=== PATIENT | female | born 1995 | race African-American/Black ===

== ENCOUNTER 2018-07-18 14:42 | Emergency (ER) | payer SELFPAY ==
[~2018-07-18] VITALS: Ht 162.6 cm; Wt 81.6 kg
[~2018-07-18 14:42] MED LIST: ALBUTEROL SULF8.5 GM INH; GUAIFENESIN1200 MG PO; HUMALOG100 UNIT/1 SUBQ; KEPPRA500 M4 ORAL; LANTUS5 UNITS SUBQ; TESSALON PERLE100 MG ORAL
--- NOTE | 2018-07-18 14:55 | NUR ---
ED Nurse Note: Pt is not in the waiting room tamiko.
[2018-07-18 15:09] VITALS: BP 121/79
--- NOTE | 2018-07-18 15:11 | NUR ---
ED Nurse Note: pt walked into ED c/o left upper tooth pain since a week ago and progressively worsening. Pt states she wasn't able to see the dentist. Pt rates pain 10/10 sharp and constant. Pt AA&ox4, gcs=15, skin warm and dry, resp even and unlabored, airway patent, ambulates w/ steady gait, noted tenderness noted missing tooth on upper left side, and some darkened area on the tooth before missing tooth. Will continue to monitor.
--- NOTE | 2018-07-18 15:23 | Emergency Room Report ---
History of Present Illness General Chief Complaint: Toothache Source: Patient Present Illness HPI 22-year-old female presents to the emergency department complaining of progressive left upper molar pain at this now 10 out of 10 in severity 1.5 weeks. Patient states that she was supposed to have the tooth pulled however she wanted to try to save the tooth get a root canal instead but was unable to have this performed. Patient states that she left work early because the pain was too bad today. Patient reports talking exacerbates her pain eating or even having the cold air flow on or across the tooth causes significant pain. She denies discharge, swelling of the gums, fevers, chills or swollen tender lymph nodes. Allergies: Coded Allergies: No Known Allergies (Unverified , 06/10/18) Patient History Past Medical History: see triage record Past Surgical History: none Pertinent Family History: none Last Menstrual Period: 07/11/18 Now: No Reviewed Nursing Documentation: PMH: Agreed; PSxH: Agreed Nursing Documentation-PMH Past Medical History: No History, Except For Hx Cardiac Problems: No - TB Hx Asthma: Yes Hx Diabetes: Yes Hx Seizures: Yes Review of Systems All Other Systems: negative except mentioned in HPI Physical Exam Vital Signs Date Time Temp Pulse Resp B/P (MAP) Pulse Ox O2 Delivery O2 Flow Rate FiO2 07/18/18 15:01 98.4 78 20 121/79 98 Room Air Sp02 EP Interpretation: reviewed, normal General Appearance: no apparent distress, alert, GCS 15, non-toxic Head: normocephalic, atraumatic Eyes: bilateral eye normal inspection, bilateral eye PERRL ENT: hearing grossly normal, normal voice, other - tenderness to percussion to tooth no. 15, no fluctuance about the gum line, some erythema noted surrounding the base of the tooth. Neck: full range of motion Respiratory: lungs clear, speaking full sentences Cardiovascular #1: regular rate, rhythm Musculoskeletal: back normal, gait/station normal, normal range of motion, non- tender Neurologic: alert, oriented x3, responsive, motor strength/tone normal, sensory intact, normal gait, speech normal, grossly normal Psychiatric: judgement/insight normal Skin: normal color, no rash, warm/dry, well hydrated Lymphatic: no adenopathy Medical Decision Making PA Attestation Dr. Solorzano is my supervising Physician whom patient management has been discussed with. Diagnostic Impression: Primary Impression: Acute pericoronitis ER Course 22-year-old female presents to the emergency department complaining of progressive left upper molar pain at this now 10 out of 10 in severity 1.5 weeks. Patient states that she was supposed to have the tooth pulled however she wanted to try to save the tooth get a root canal instead but was unable to have this performed. Patient states that she left work early because the pain was too bad today. Patient reports talking exacerbates her pain eating or even having the cold air flow on or across the tooth causes significant pain. She denies discharge, swelling of the gums, fevers, chills or swollen tender lymph nodes. Ddx considered but are not limited to cellulitis, dental abscess, orbital cellulitis, d/l tooth, dental pain. trigeminal neuralgia Vital signs: are WNL, pt. is afebrile H&PE are most consistent with dental abscess. ORDERS: none required at this time, the diagnosis is clinical ED INTERVENTIONS: -[place] PO DISCHARGE: At this time pt. is stable for d/c to home. Will provide printed patient care instructions, and any necessary prescriptions. Care plan and follow up instructions have been discussed with the patient prior to discharge. Last Vital Signs Date Time Temp Pulse Resp B/P (MAP) Pulse Ox O2 Delivery O2 Flow Rate FiO2 07/18/18 15:09 98.4 78 20 121/79 98 Room Air Disposition: HOME, SELF-CARE Condition: Stable Scripts Acetaminophen With Codeine (T#3) (TYLENOL #3 TAB*) Y Tab 1 TAB ORAL Q6H PRN for For Pain, #8 TAB Prov: April Lara 07/18/18 Amoxicillin* (AMOXIL*) 500 Mg Capsule 500 MG ORAL BID for 7 Days, #14 CAP Prov: April Lara 07/18/18 Departure Forms: Return to Work Return to Work Date: Jul 21, 2018 Work Restrictions: None Return to Full Activity: Jul 22, 2018 Patient Instructions: Dental Pain Additional Instructions: Take medications as directed. Follow up with a Dentist in 3-5 days, even if your symptoms have resolved. * * --Please review list of Dental clinics, if you do not already have a Dentist Return sooner to ED if new symptoms occur, or current symptoms become worse. Do not drink alcohol, drive, or operate heavy machinery while taking Tylenol # 3 as this may cause drowsiness. - Please note that this Emergency Department Report was dictated using digedugarland machine operator technology software, occasionally this can lead to erroneous entry secondary to interpretation by the dictation equipment. April Lara Jul 18, 2018 15:23
[2018-07-18] MEDS ORDERED: AMOXICILLIN500 MG ORAL (15:25)
[2018-07-18] MEDS ORDERED: ACETAMINOPHEN-1 EAC1 ORAL (15:25)
[2018-07-18] MEDS ORDERED: Norco 5mg/325mg tab ORAL ONE (15:30)
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
[2018-07-18 15:45] VITALS: BP 118/98
[2018-07-18] MEDS ORDERED: Tylenol #3 tab (300mg/30mg) ORAL ONE (15:45)
--- NOTE | 2018-07-18 15:45 | NUR ---
ED Nurse Note: Pt discharge instruction provided w/ prescription, id band removed, pt education done via discussion and handout, pt verbalized understanding and agrees with plan, pt advised to follow up with pcp regarding pt's condition, pt advised to return to ed if s/s worsen or new s/s develop.
== END 2018-07-18 15:45 | disposition home or self-care (01) ==
LOC: EMR 15:30
DX: K05.20 Aggressive periodontitis, unspecified (principal); E11.9 Type 2 diabetes mellitus without complications; J45.909 Unspecified asthma, uncomplicated
CPT/HCPCS: 99282

== ENCOUNTER 2019-03-02 22:33 | Emergency (ER) | payer MEDICAID ==
[~2019-03-02] VITALS: Ht 162.6 cm; Wt 79.4 kg
[~2019-03-02 22:33] MED LIST changes: +ACETAMINOPHEN-1 EAC1 ORAL; +AMOXICILLIN500 MG ORAL
[2019-03-02 23:18] VITALS: BP 152/85
--- NOTE | 2019-03-02 23:20 | NUR ---
ED Nurse Note: PATIENT WALKED IN TO ER FROM HOME C/O FEVER, MOUTH PAIN, AND HEAD AND NECK PAIN AFTER 2 TEETH PULLED 3 DAYS AGO. PAIN AT 10/10 AND SHARP. AAO X4, SKIN IS DRY WARM TO TOUCH. ER MD AT BEDSIDE.
--- NOTE | 2019-03-02 23:22 | Emergency Room Report ---
History of Present Illness General Chief Complaint: Pain Source: Patient Present Illness HPI Presents with sore throat for 1 week. She is on amoxicillin, Tylenol with codeine Motrin aspirin and Tylenol. She states she cannot swallow. She had teeth pulled and has pain there. She feels dizzy when she stands up. She does not believe she is at this time. The pain is rated 10/10, burning in her throat and aching in her mouth which is constant. No radiation. Allergies: Coded Allergies: No Known Allergies (Unverified , 03/02/19) Patient History Past Medical History: see triage record Social History: Reports: smoking Social History Narrative From home - working Last Menstrual Period: 02-08-2019 Now: No Reviewed Nursing Documentation: PMH: Agreed; PSxH: Agreed Nursing Documentation-PMH Hx Cardiac Problems: No - TB Hx Asthma: Yes Hx Diabetes: Yes Hx Seizures: Yes Review of Systems Constitutional: Reports: see HPI ENT: Reports: see HPI Respiratory: Denies: cough Cardiovascular: Denies: chest pain Gastrointestinal: Denies: diarrhea, nausea, vomiting Genitourinary: Reports: see HPI Musculoskeletal: Reports: see HPI Skin: Denies: rash Neurological: Reports: see HPI; Denies: headache Physical Exam Vital Signs Date Time Temp Pulse Resp B/P (MAP) Pulse Ox O2 Delivery O2 Flow Rate FiO2 03/02/19 23:01 98.2 80 20 152/85 (107) 98 Room Air Sp02 EP Interpretation: reviewed, normal General Appearance: well appearing, no apparent distress, GCS 15 Head: normocephalic Eyes: bilateral eye normal inspection, bilateral eye PERRL, bilateral eye EOMI ENT: no angioedema, moist mucus membranes, tonsillar swelling - No peritonsillar abscess able to open mouth without difficulty., pharyngeal erythema Neck: supple Respiratory: lungs clear, normal breath sounds Cardiovascular #1: regular rate, rhythm Cardiovascular #2: 2+ radial (R) Gastrointestinal: normal inspection, normal bowel sounds, non tender, non- distended Genitourinary: no CVA tenderness Musculoskeletal: back normal, gait/station normal, normal range of motion Neurologic: alert, oriented x3, grossly normal Psychiatric: mood/affect normal Skin: no rash, other - Tattoos Medical Decision Making Diagnostic Impression: Primary Impression: Pharyngitis Qualified Codes: J02.9 - Acute pharyngitis, unspecified Additional Impression: Dehydration ER Course Patient presents with a week of sore throat undergoing treatment with amoxicillin, Tylenol codeine and Motrin. She has symptoms of dehydration. Differential includes partially treated strep infection, mononucleosis, viral pharyngitis amongst others. There is no evidence of peritonsillar abscess at this time. Patient will be treated with IV hydration, steroids, analgesia and antibiotics. Patient is improved with treatment. Discussed treatment plan with patient. Patient stable for outpatient observation and treatment. Laboratory Tests Test 03/02/19 23:25 White Blood Count 8.6 K/UL (4.8-10.8) Red Blood Count 4.64 M/UL (4.20-5.40) Hemoglobin 13.8 G/DL (12.0-16.0) Hematocrit 41.2 % (37.0-47.0) Mean Corpuscular Volume 89 FL (80-99) Mean Corpuscular Hemoglobin 29.7 PG (27.0-31.0) Mean Corpuscular Hemoglobin Concent 33.4 G/DL (32.0-36.0) Red Cell Distribution Width 12.2 % (11.6-14.8) Platelet Count 219 K/UL (150-450) Mean Platelet Volume 9.4 FL (6.5-10.1) Neutrophils (%) (Auto) 51.7 % (45.0-75.0) Lymphocytes (%) (Auto) 36.2 % (20.0-45.0) Monocytes (%) (Auto) 9.6 % (1.0-10.0) Eosinophils (%) (Auto) 1.3 % (0.0-3.0) Basophils (%) (Auto) 1.2 % (0.0-2.0) Urine Color Pale yellow Urine Appearance Clear Urine pH 6 (4.5-8.0) Urine Specific [place] 1.015 (1.005-1.035) Urine Protein Negative (NEGATIVE) Urine Glucose (UA) 4+ (NEGATIVE) H Urine Ketones Negative (NEGATIVE) Urine Blood Negative (NEGATIVE) Urine Nitrite Negative (NEGATIVE) Urine Bilirubin Negative (NEGATIVE) Urine Urobilinogen Normal MG/DL (0.0-1.0) Urine Leukocyte Esterase Negative (NEGATIVE) Urine HCG, Qualitative Negative (NEGATIVE) Sodium Level 136 MMOL/L (136-145) Potassium Level 3.3 MMOL/L (3.5-5.1) L Chloride Level 103 MMOL/L (98-107) Carbon Dioxide Level 27 MMOL/L (21-32) Anion Gap 6 mmol/L (5-15) Blood Urea Nitrogen 8 mg/dL (7-18) Creatinine 0.6 MG/DL (0.55-1.30) Estimate Glomerular Filtration Rate > 60 mL/min (>60) Glucose Level 224 MG/DL (74-106) H Calcium Level 8.6 MG/DL (8.5-10.1) Total Bilirubin 0.2 MG/DL (0.2-1.0) Aspartate Amino Transferase (AST) 32 U/L (15-37) Alanine Aminotransferase (ALT) 43 U/L (12-78) Alkaline Phosphatase 82 U/L (46-116) Total Protein 6.2 G/DL (6.4-8.2) L Albumin 2.8 G/DL (3.4-5.0) L Globulin 3.4 g/dL Albumin/Globulin Ratio 0.8 (1.0-2.7) L Last Vital Signs Date Time Temp Pulse Resp B/P (MAP) Pulse Ox O2 Delivery O2 Flow Rate FiO2 03/03/19 01:25 98.4 81 16 138/76 99 Room Air Status: improved Disposition: HOME, SELF-CARE Condition: Improved Scripts Lidocaine HCl 2% Viscous (Lidocaine HCl 2% Viscous) 100 Ml Solution 10 ML ORAL QID PRN for sore throat, #60 ML Prov: Bobby Solorzano MD 03/03/19 Tramadol Hcl* (ULTRAM*) 50 Mg Tablet 50 MG ORAL Q6H PRN for For Pain, #8 TAB 0 Refills Prov: Bobby Solorzano MD 03/03/19 Azithromycin* (ZITHROMAX*) 250 Mg Tablet 250 MG ORAL DAILY, #4 TAB Prov: Bobby Solorzano MD 03/03/19 Bobby Solorzano MD Mar 02, 2019 23:22
[2019-03-02] MEDS ORDERED: Azithromycin 500 MG in NS 275 ML IV ONE (23:30)
[2019-03-02] MEDS ORDERED: Lidocaine 2% Visc 15ml soln ORAL ONE (23:30)
[2019-03-02] MEDS ORDERED: Solu-MEDROL 125mg Inj IVP ONE (23:30)
[2019-03-02] MEDS ORDERED: Morphine Sulfate 2mg/ml Inj(IV/IM USE ONLY) IVP ONE (23:30)
[2019-03-02 23:56] LABS: BASOPHILS % (AUTO) 1.2 % (0.0-2.0); EOSINOPHILS % (AUTO) 1.3 % (0.0-3.0); HEMATOCRIT 41.2 % (37.0-47.0); HEMOGLOBIN 13.8 G/DL (12.0-16.0); LYMPHOCYTES % (AUTO) 36.2 % (20.0-45.0); MEAN CORPUSCULAR VOLUME 89 FL (80-99); MONOCYTES % (AUTO) 9.6 % (1.0-10.0); NEUTROPHILS % (AUTO) 51.7 % (45.0-75.0); PLATELET COUNT 219 K/UL (150-450); RED BLOOD COUNT 4.64 M/UL (4.20-5.40); RED CELL DISTRIBUTION WIDTH 12.2 % (11.6-14.8); WHITE BLOOD COUNT 8.6 K/UL (4.8-10.8)
[2019-03-02 23:59] LABS: APPEARANCE,URINE CLEAR; BILIRUBIN, URINE NEGATIVE (NEGATIVE); COLOR,URINE PALE YELLOW; GLUCOSE, URINE (UA) 4+ (NEGATIVE); KETONES,URINE NEGATIVE (NEGATIVE); LEUKOCYTE ESTERASE ,URINE NEGATIVE (NEGATIVE); NITRITE,URINE NEGATIVE (NEGATIVE); PH,URINE 6 (4.5-8.0); PROTEIN,URINE NEGATIVE (NEGATIVE); UROBILINOGEN,URINE NORMAL MG/DL (0.0-1.0)
[2019-03-03 00:07] LABS: ANION GAP 6 mmol/L (5-15); BLOOD UREA NITROGEN 8 mg/dL (7-18); CALCIUM 8.6 MG/DL (8.5-10.1); CARBON DIOXIDE 27 MMOL/L (21-32); CHLORIDE 103 MMOL/L (98-107); CREATININE 0.6 MG/DL (0.55-1.30); POTASSIUM 3.3 MMOL/L (3.5-5.1); SODIUM 136 MMOL/L (136-145)
[2019-03-03 00:12] LABS: ALANINE AMINOTRANSFERASE 43 U/L (12-78); ALBUMIN 2.8 G/DL (3.4-5.0); ALBUMIN/GLOBULIN RATIO 0.8 (1.0-2.7); ALKALINE PHOSPHATASE 82 U/L (46-116); ASPARTATE AMINO TRANSFERASE 32 U/L (15-37); BILIRUBIN,TOTAL 0.2 MG/DL (0.2-1.0)
[2019-03-03 01:15] VITALS: BP 138/76
[2019-03-03] MEDS ORDERED: LIDOCAINE VISC100 ML ORAL (01:16)
[2019-03-03] MEDS ORDERED: TRAMADOL HCL50 MG ORAL (01:16)
[2019-03-03] MEDS ORDERED: ZITHROMAX250 MG ORAL (01:16)
[2019-03-03 01:25] VITALS: BP 138/76
--- NOTE | 2019-03-03 01:25 | NUR ---
ED Nurse Note: PT BEING D/C TO HOME, PT IS AWAKE, ALERT AND ORIENTED X 4, AMBULATORY, IV REMOVED WITHOUT COMPLICATIONS AND NO BLEEDING NOTED, PT GIVEN F/U INFO AND AFTER CARE INSTRUCTIONS AND RE-VERBALIZES PROPER MEDICATION ADMINISTRATION, NAD NOTED DURING D/C TO HOME.
== END 2019-03-03 01:25 | disposition home or self-care (01) ==
LOC: EMR 23:23
DX: J02.9 Acute pharyngitis, unspecified (principal); E86.0 Dehydration; J45.909 Unspecified asthma, uncomplicated; E11.9 Type 2 diabetes mellitus without complications; F17.200 Nicotine dependence, unspecified, uncomplicated
CPT/HCPCS: 36415; 80053; 81003; 81025; 85025; 96365; 96375; 99284; J0456; J2270; J2405; J2930; J7050

== ENCOUNTER 2019-05-07 16:14 | Emergency (ER) | payer MEDICAID ==
[~2019-05-07] VITALS: Ht 162.6 cm; Wt 78.9 kg
[~2019-05-07 16:14] MED LIST changes: +LIDOCAINE VISC100 ML ORAL; +TRAMADOL HCL50 MG ORAL; +ZITHROMAX250 MG ORAL
[2019-05-07 16:16] VITALS: BP 145/84
[2019-05-07] MEDS ORDERED: Tetanus/Diptheria/Pertussis IM ONE (16:45)
--- NOTE | 2019-05-07 17:22 | Emergency Room Report ---
History of Present Illness General Chief Complaint: Laceration Source: Patient Present Illness HPI 23 YO Female presents to the emergency department complaining of 10 out of 10 in severity left medial leg pain since yesterday status post laceration from a piece of metal on her shoe rack. Patient reports she is not sure when her last tetanus vaccination was and she states that she is not taking any blood thinning medications. Patient reports history of diabetes and states that she is concerned because she may have poor healing process. She denies bleeding at this time she reports pain exacerbation upon walking. She denies trauma or fall. Allergies: Coded Allergies: No Known Allergies (Unverified , 03/02/19) Patient History Past Medical History: see triage record Past Surgical History: none Pertinent Family History: none Last Menstrual Period: 04/14/19 Now: No Reviewed Nursing Documentation: PMH: Agreed; PSxH: Agreed Nursing Documentation-PMH Past Medical History: No History, Except For Hx Cardiac Problems: No - TB Hx Asthma: Yes Hx Diabetes: Yes Hx Seizures: Yes Review of Systems All Other Systems: negative except mentioned in HPI Physical Exam Vital Signs Date Time Temp Pulse Resp B/P (MAP) Pulse Ox O2 Delivery O2 Flow Rate FiO2 05/07/19 16:16 98.2 83 16 145/84 (104) 100 Room Air Sp02 EP Interpretation: reviewed, normal General Appearance: no apparent distress, alert, GCS 15, non-toxic Head: normocephalic, atraumatic Eyes: bilateral eye normal inspection, bilateral eye PERRL ENT: hearing grossly normal, normal voice Neck: full range of motion Respiratory: lungs clear, normal breath sounds, speaking full sentences Cardiovascular #1: regular rate, rhythm Gastrointestinal: non tender, soft Musculoskeletal: gait/station normal, normal range of motion, non-tender Neurologic: alert, oriented x3, responsive, motor strength/tone normal, sensory intact, speech normal, grossly normal Psychiatric: judgement/insight normal Skin: laceration - Medial left calf laceration approx 4 cm in length, superficial avulsion. Lymphatic: no adenopathy Medical Decision Making PA Attestation Dr. Hyde is my supervising Physician whom patient management has been discussed with. Diagnostic Impression: Primary Impression: Laceration ER Course 23 YO Female presents to the emergency department complaining of 10 out of 10 in severity left medial leg pain since yesterday status post laceration from a piece of metal on her shoe rack. Patient reports she is not sure when her last tetanus vaccination was and she states that she is not taking any blood thinning medications. Patient reports history of diabetes and states that she is concerned because she may have poor healing process. She denies bleeding at this time she reports pain exacerbation upon walking. She denies trauma or fall. Ddx considered but are not limited to laceration, tendon injury, cellulitis, amputation Vital signs: are WNL, pt. is afebrile. H&PE are most consistent with: Medial left calf laceration approx 4 cm in length, superficial avulsion. ORDERS: none required at this time, the diagnosis is clinical ED INTERVENTIONS: -Tetanus vaccine was administered as pt. vaccination status was unknown. - The wound was copiously irrigated with normal saline, and explored for foreign body for which no FB was found. -Bacitracin and sterile dressing is applied. Discussed with patient: That we make every effort to approximate the laceration as best as we can so that scarring will be as cosmetically pleasing as possible with our limited cosmetic skill set in the Emergency dept. Regardless of our best efforts there will be scarring after laceration repair. The extent of scarring is unknown at this time. DISCHARGE: At this time pt. is stable for d/c to home. Will provide printed patient care instructions, and any necessary prescriptions. Care plan and follow up instructions have been discussed with the patient prior to discharge. Last Vital Signs Date Time Temp Pulse Resp B/P (MAP) Pulse Ox O2 Delivery O2 Flow Rate FiO2 05/07/19 16:16 98.2 83 16 145/84 100 Room Air Disposition: HOME, SELF-CARE Condition: Stable Departure Forms: Return to Work Return to Work Date: May 11, 2019 Work Restrictions: None Other Restrictions: May return Sooner if Symptoms have resolved. Return to Full Activity: May 11, 2019 Patient Instructions: Nonsutured Laceration Care Additional Instructions: Take medications as directed. Follow up with a Primary Care Provider in 3-5 days, even if your symptoms have resolved. - Return sooner to ED if new symptoms occur, or current symptoms become worse. - Please note that this Emergency Department Report was dictated using [employer] packer and shader technology software, occasionally this can lead to erroneous entry secondary to interpretation by the dictation equipment. April Lara May 07, 2019 17:21
[2019-05-07] MEDS ORDERED: MUPIROCIN22 GM TOPIC (17:24)
[2019-05-07] MEDS ORDERED: CEPHALEXIN500 MG ORAL (17:24)
[2019-05-07] MEDS ORDERED: Neosporin Oint Ud Pkt TOPIC ONE (17:30)
--- NOTE | 2019-05-07 17:40 | NUR ---
ED Nurse Note: LLE WOUND CLEANSED WITH NS, PATTED DRY THEN APPLIED MUPIROCIN OINTMENT,COVERE DWITH XEROFORM AND PETROLATUM.
[2019-05-07] MEDS ORDERED: TYLENOL EXTRA500 MG ORAL (17:43)
[2019-05-07 17:44] VITALS: BP 139/78
--- NOTE | 2019-05-07 17:44 | NUR ---
ER DISCHARGE NOTE: Pt was seen due to LLE abrasion. Patient is cleared to be discharged per PA, pt is aox4, on room air, with stable vital signs. pt was given dc and prescription instructions, pt was able to verbalize understanding, pt id band removed. pt is able to ambulate with steady gait. pt took all belongings.
== END 2019-05-07 18:30 | disposition home or self-care (01) ==
LOC: EMR 18:30
DX: S81.812A Laceration without foreign body, left lower leg, initial encounter (principal); E11.9 Type 2 diabetes mellitus without complications; J45.909 Unspecified asthma, uncomplicated; Z23 Encounter for immunization; W22.09XA Striking against other stationary object, initial encounter; Y92.9 Unspecified place or not applicable
CPT/HCPCS: 90471; 90715; Z7502; 99283

== ENCOUNTER 2020-09-03 00:50 | Emergency (ER) | payer MEDICAID ==
[~2020-09-03] VITALS: Ht 177.8 cm; Wt 102.1 kg
[~2020-09-03 00:50] MED LIST changes: +CEPHALEXIN500 MG ORAL; +MUPIROCIN22 GM TOPIC; +TYLENOL EXTRA500 MG ORAL
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
[2020-09-03] MEDS ORDERED: HYDROmorphone 1mg/ml Carpuject IM ONE (02:00)
--- NOTE | 2020-09-03 02:00 | NUR ---
Note ac in EDM - 09/03/20 at 0216 by BHAKTI ER DISCHARGE NOTE: Patient is cleared to be discharged per ERMD, pt is aox4, on room air, with stable vital signs. pt was given dc and prescription instructions, pt was able to verbalize understanding, pt id band and iv site removed without complications. pt is able to ambulate with steady gait. pt took all belongings.
[2020-09-03 02:16] VITALS: BP 142/82
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
[2020-09-03] MEDS ORDERED: IBUPROFEN600 M1 ORAL (03:25)
[2020-09-03] MEDS ORDERED: HYDROCODON-ACE1 EA18 PO (03:28)
--- NOTE | 2020-09-03 03:52 | NUR ---
ER DISCHARGE NOTE: Patient is cleared to be discharged per ERMD, pt is aox4, on room air, with stable vital signs. pt was given dc and prescription instructions, pt was able to verbalize understanding, pt id band and iv site removed without complications. pt is able to ambulate with steady gait. pt took all belongings.
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
== END 2020-09-03 03:53 | disposition home or self-care (01) ==
LOC: EMR 01:37
DX: S99.922A Unspecified injury of left foot, initial encounter (principal); S99.912A Unspecified injury of left ankle, initial encounter; S69.92XA Unspecified injury of left wrist, hand and finger(s), initial encounter; S69.91XA Unspecified injury of right wrist, hand and finger(s), initial encounter; S29.9XXA Unspecified injury of thorax, initial encounter; J45.909 Unspecified asthma, uncomplicated; E11.9 Type 2 diabetes mellitus without complications; G40.909 Epilepsy, unspecified, not intractable, without status epilepticus; S49.92XA Unspecified injury of left shoulder and upper arm, initial encounter; V03.90XA Pedestrian on foot injured in collision with car, pick-up truck or van, unspecified whether traffic or nontraffic accident, initial encounter; Y93.9 Activity, unspecified; Y92.411 Interstate highway as the place of occurrence of the external cause
CPT/HCPCS: 71250; 73030; 73130; 73610; 73630; 96372; J1170; Z7502; 99284